=== PATIENT | female | born 1990 | race American Indian/Alaskan Native ===

== ENCOUNTER 2017-03-13 13:00 | Emergency (ER) | payer OTHER ==
[2017-03-13 13:11] VITALS: BMI 33.0
[2017-03-13 19:23] VITALS: BP 115/63; PULSE 87; RESP 17; TEMP 97.3; O2SAT 99
--- NOTE | 2017-03-13 20:35 | OBHP ---
Datetime: 03/13/2017 14:00 IP Adm Impression: Term, intrauterine IP Admit Plan: Observation/Evaluation Admit Comment, IP Provider: CC: Lower abdominal pain HPI: 27 yo at 37.0 wks GA with EDC by LMP; +: FM; -: CTX, VB, ROM last U/S: 03/08/2017 Last visit 03/11/2017 Pt shares that this morning at 10:30 she experienced R lower quadrant abdominal pain, rated 7/10, non radiating, lasting for approximately 30 minutes and spontaneously resolving. Denies associated Na usea, vomiting. past obhx: n/a past gyne: STI: denies; pap recent but unknown date pmhx: none psurghx: tonsillectomy at 5 years old Soc: denies: smoking, alcohol, illicit drugs Meds: PNV Allergies: nkda Vitals: 125/73 94bpm 100% PE: General: pleasant, in no acute distress HEENT: normocephalic, PERRLA; AAOx3 Heart: no murmurs, regular rate and rhythm, S1, S2 normal. Lungs: clear to auscultation bilaterally, no wheezing Abdomen: nontender, gravid CVA: negative Lower extremities: negative for pitting edema Pelvic: Pt examined bedside US: fetus in vertex position; spine on R side of maternal abdomen with surrounding p ockets of amniotic fluid. Monitor: moderate variability, Accel:15x15; No decels; FHR: 148. Assessment: 27 yo F IUP at 37.0 wks via LMP Plan: R lower abdominal pain associated with positioning Pt will be monitored NST. d/w Dr. Mahsa CAI PGY1 OBH addendum: Patient seen and examined by me with Dr. Cai. Agree with above assessment and plan. DC home Labor precautions discussed with patient and fOB Follow up for her next OB appointment as scheduled Pelvic Type - PN: Adequate Extremities - PN: Normal Abdomen - PN: Normal Back - PN: Normal Breast - PN: Not Done Lungs - PN: Normal Heart - PN: Normal Thyroid - PN: Not Done Neurologic - PN: Normal HEENT - PN: Normal General - PN: Normal FHR - Baseline A Provider: 140 EGA AdmitDate IP: 37.0 Vital Signs Provider: Reviewed; Within Normal Limits IP Chief Complaint: Other NICHD Variability Prov Fetus A: Moderate 6-25bpm NICHD Accel Fetus A IP Provider: 15X15 FHR Category Provider Fetus A: Category I NICHD Decel Fetus A IP Provider: None Genitourinary Exam: Normal DTRs - PN: Not Done
== END 2017-03-13 14:35 | disposition home or self-care (01) ==
LOC: H.EROB2 13:00 → H.EROB 13:03 → H.EROB2 14:35
DX: O47.1 False labor at or after 37 completed weeks of gestation (principal); Z3A.37 37 weeks gestation of pregnancy

== ENCOUNTER 2017-03-25 15:36 | Emergency (ER) | payer OTHER ==
[2017-03-25 16:42] VITALS: BMI 34.9
[2017-03-25 17:37] LABS: RBC URINE 2 /hpf (0-3); URINE BACTERIA RARE (<OCC); URINE BILIRUBIN NEGATIVE (NEGATIVE); URINE BLOOD NEGATIVE (NEGATIVE); URINE COLOR YELLOW (YELLOW); URINE GLUCOSE (UA) NEG (Normal); URINE KETONE NEGATIVE (NEGATIVE); URINE LEUKOCYTE ESTERASE TRACE Leu/uL (Negative); URINE PROTEIN NEGATIVE (NEGATIVE); URINE UROBILINOGEN 0.2-1.0 mg/dL (0.2-1.0); WBC URINE 3 /hpf (0-5)
[2017-03-25 17:38] LABS: BASO % 0.4 % (0.0-2.0); EOS % 0.4 % (0.0-4.0); HEMATOCRIT 40.1 % (34.0-47.0); LYMPH # 2.1 K/uL (1.0-4.3); LYMPH % 28.5 % (20.0-40.0); MEAN CORPUSCULAR HEMOGLOBIN 25.5 pg (27.0-31.0); MEAN CORPUSCULAR HGB CONC 32.2 g/dL (33.0-37.0); MEAN PLATELET VOLUME 10.8 fl (7.2-11.7); MONO # 0.6 K/uL (0.0-0.8); MONO % 8.3 % (0.0-10.0); NEUT # 4.6 K/uL (1.8-7.0); NEUT % 62.4 % (50.0-75.0); NRBC % 0.1 % (0.0-0.0); RED CELL DISTRIBUTION WIDTH 15.5 % (11.5-14.5); WHITE BLOOD COUNT 7.4 K/uL (4.8-10.8)
[2017-03-25 17:46] LABS: ALB/GLOB RATIO 1.1 (1.0-2.1); ALKALINE PHOSPHATASE 217 U/L (38-126); ALT/SGPT 29 U/L (9-52); AST/SGOT 20 U/L (14-36); BILIRUBIN,TOTAL 0.3 mg/dl (0.2-1.3); BLOOD UREA NITROGEN 9 mg/dl (7-17); CALCIUM 9.7 mg/dL (8.4-10.2); CARBON DIOXIDE 18 mmol/L (22-30); CHLORIDE 109 mmol/L (98-107); GFR AFRICAN-AMERICAN > 60; GLUCOSE,RANDOM 72 mg/dL (65-105); POTASSIUM 3.8 MMOL/L (3.6-5.0); SODIUM 140 mmol/l (132-148); TOTAL PROTEIN 7.3 G/DL (6.3-8.2)
--- NOTE | 2017-03-25 18:53 | OBHP ---
Datetime: 03/25/2017 18:41 IP Adm Impression: Term, intrauterine IP Admit Plan: Observation/Evaluation; Discharge home Admit Comment, IP Provider: 27 yo at 38.5 wks GA with EDC by LMP; +: FM; -: CTX, VB, ROM Pt presents for bp monitoring and laboratory eval for preeclampsia due to elev bp noted in office today. Denies associated headache, blurred vision, right upper quadrant or midepigastric, scotomata, Nausea orvomiting. past obhx: n/a past gyne: STI: denies; pap recent but unknown date pmhx: none psurghx: tonsillectomy at 5 years old Soc: denies: smoking, alcohol, illicit drugs Meds: PNV Allergies: nkda Assessment: Elevated BP noted in office eval for preeclampsia 38.5wks Plan: cbc, ldh, cmp, ua Addendum: Laboratory evaluation within normal limits. Results discussed with patient with Dr. Cuellar Preeclamptic precautions Patient advised to follow this Saturday in 2 days as scheduled with Dr. Cuellar Extremities - PN: Normal Abdomen - PN: Normal Lungs - PN: Normal Heart - PN: Normal Neurologic - PN: Normal HEENT - PN: Normal General - PN: Normal FHR - Baseline A Provider: 130 Contraction Comments Provider: no EGA AdmitDate IP: 38.5 Vital Signs Provider: Reviewed IP Chief Complaint: Signs/Symptoms Gestational HTN NICHD Variability Prov Fetus A: Moderate 6-25bpm NICHD Accel Fetus A IP Provider: 15X15 FHR Category Provider Fetus A: Category I NICHD Decel Fetus A IP Provider: None
[2017-03-25 22:32] VITALS: BP 128/70; PULSE 98; RESP 12; TEMP 98.5
== END 2017-03-25 18:27 | disposition home or self-care (01) ==
LOC: H.EROB2 15:46 → H.L&D 16:05 → H.EROB2 18:27
DX: O13.3 Gestational [pregnancy-induced] hypertension without significant proteinuria, third trimester (principal); Z3A.38 38 weeks gestation of pregnancy

== ENCOUNTER 2017-03-28 07:50 | Inpatient (IN) | payer OTHER ==
[2017-03-28 07:55] VITALS: BMI 36.3
[2017-03-28] MEDS ORDERED: Oxytocin 30 units/LR 500ML 500 ML IV SCH (08:00)
[2017-03-28 08:27] LABS: BASO % 0.4 % (0.0-2.0); EOS # 0.1 K/uL (0.0-0.7); EOS % 1.3 % (0.0-4.0); HEMATOCRIT 38.7 % (34.0-47.0); LYMPH # 2.3 K/uL (1.0-4.3); LYMPH % 31.9 % (20.0-40.0); MEAN CELL VOLUME 78.1 fl (81.0-99.0); MEAN CORPUSCULAR HEMOGLOBIN 25.9 pg (27.0-31.0); MEAN CORPUSCULAR HGB CONC 33.1 g/dL (33.0-37.0); MEAN PLATELET VOLUME 10.5 fl (7.2-11.7); MONO # 0.6 K/uL (0.0-0.8); NEUT # 4.1 K/uL (1.8-7.0); NEUT % 58.4 % (50.0-75.0); NRBC % 0.2 % (0.0-0.0); RED CELL DISTRIBUTION WIDTH 15.7 % (11.5-14.5); WHITE BLOOD COUNT 7.1 K/uL (4.8-10.8)
[2017-03-28] MEDS ORDERED: ceFAZolin 2 GM in Sodium Chloride 0.9% 100 ML IVPB ONE (08:30)
[2017-03-28] MEDS: Lactated Ringer's 1,000 ML IV SCH ×2 (08:30→09:15)
[2017-03-28] MEDS ORDERED: Oxytocin 30 units/LR 500ML 30 U/500 ML BAG IV ONE (09:00)
[2017-03-28] MEDS ORDERED: Morphine 1 mg/ml preservative-free Inj(Duramorph) ONE (09:36)
--- NOTE | 2017-03-28 09:36 | OBADHP ---
Datetime: 03/28/2017 09:32 Admit Comment, IP Provider: 27-year-old at 39 weeks and 1 day gestational age presents for wiliam ctive primary . Patient with a history of gestational hypertension as well as large for gest ational age . Patient given option for induction of labor. Patient declining induction of labor . Discussed with patient the risks, benefits, alternatives of surgery. All patient questions answered . Patient consented for . Otherwise, patient course unremarkable except GBS positiv e. Past medical history none Past surgical history none Medications vitamins No known drug allergies Obstetrical history Social history no tobacco, no drugs, no alcohol Physical exam: Deferred physical exam findings Assessment: 27-year-old at 39 weeks and 1 day gestational age for elective primary . Maternal w ell-being and well-being reassuring at this time. Plan: Patient consented for primary Plan for routine postoperative observation and care Pelvic Type - PN: Adequate Extremities - PN: Normal Abdomen - PN: Normal Back - PN: Normal Breast - PN: Normal Lungs - PN: Normal Heart - PN: Normal Thyroid - PN: Normal Neurologic - PN: Normal HEENT - PN: Normal General - PN: Normal FHR - Baseline A Provider: 150s IP Hx Assessment: The History has been Reviewed and is Current Vital Signs Provider: Reviewed; Within Normal Limits IP Chief Complaint: Scheduled Section NICHD Variability Prov Fetus A: Moderate 6-25bpm NICHD Accel Fetus A IP Provider: 15X15 FHR Category Provider Fetus A: Category I NICHD Decel Fetus A IP Provider: None Genitourinary Exam: Normal DTRs - PN: Normal EGA AdmitDate IP: 39.1 IP Adm Impression: Term, intrauterine ; No Active Labor; Intact Membranes IP Admit Plan: Admit to unit; Initiate Section protocol Datetime: 03/25/2017 18:41 Contraction Comments Provider: no
[2017-03-28] MEDS ORDERED: Oxycodone/Acetaminophen 5/325 mg Tab PO PRN ×2 (11:09)
[2017-03-28] MEDS ORDERED: Naloxone 0.4 mg/ml Inj (Adult) IVP PRN (12:13)
[2017-03-28] MEDS ORDERED: DiphenhydrAMINE 50 mg/ml Inj IVP PRN (12:13)
[2017-03-28] MEDS ORDERED: Influenza Vaccine 18yr & older 0.5 ML/45 MCG SYR IM ONE (18:47)
[2017-03-29 05:54] LABS: HEMATOCRIT 36.5 % (34.0-47.0); MEAN CELL VOLUME 78.6 fl (81.0-99.0); MEAN CORPUSCULAR HEMOGLOBIN 25.7 pg (27.0-31.0); MEAN CORPUSCULAR HGB CONC 32.7 g/dL (33.0-37.0); RED CELL DISTRIBUTION WIDTH 15.3 % (11.5-14.5); WHITE BLOOD COUNT 10.1 K/uL (4.8-10.8)
--- NOTE | 2017-03-29 09:05 | OBDS ---
DELIVERY PERSONNEL Delivery Doctor: Leticia Cuellar MD Scrub Nurse: Cheyenne Dan obt Metal Numerical Tool Programmer: Sandra Hunt RN/monty gonzalez rn Anesthesiologist: Rosmery Juarez MD MATERNAL INFORMATION Delivery Anesthesia: Spinal Medications in Delivery: pitocin after placenta / ancef as preop Estimated Blood Loss (ml): 800 Placenta Cultured: No Maternal Complications: None Other Maternal Complications: scheduale elective primary c/s Provider Comments: Primary via Pfannenstiel incision. Patient delivered viable infant male with Apgars of 9 and 9 at one and 5 minutes respectively. Nor mal uterus, normal tubes and ovaries bilaterally Estimated blood loss 800 mL fluids 1000 mL lactate Ringers urine output 150 mL of clear urine No complications Patient tolerated procedure well. LABOR SUMMARY EDC: 04/03/2017 00:00 No. Babies in Womb: 1 Attempted: No Labor Anesthesia: None LABOR INFORMATION Oxytocin: N/A Group B Beta Strep: Positive Steroids Given: None MEMBRANES Membranes Rupture Method: Artificial Rupture of Membranes: 03/28/2017 10:16 Length of Rupture (hrs): 0.00 Amniotic Fluid Color: Clear Amniotic Fluid Amount: Moderate Amniotic Fluid Odor: Normal STAGES OF LABOR Stage 3 hrs: 0 Stage 3 min: 1 VAGINAL DELIVERY Episiotomy: None Laceration Extension: N/A Laceration Type: None CSECTION DELIVERY Primary Indication: elective pc/s Other Primary Indication: none CSection Urgency: Elective CSection Incidence: Primary Elective: Elective CSection Incision: Lower Uterine Transverse BABY A INFORMATION Delivery Date/Time: 03/28/2017 10:16 Method of Delivery: Born in Route : Yes : N/A Forceps: N/A Vacuum Extraction: N/A Shoulder Dystocia : No SHOULDER DYSTOCIA BABY A Infant Delivery Date/Time: 03/28/2017 10:16 PRESENTATION/POSITION BABY A Presentation: Cephalic Cephalic Presentation: Vertex Vertex Position: Left Occipital Anterior Breech Presentation: N/A PLACENTA INFORMATION BABY A Placenta Delivery Time : 03/28/2017 10:17 Placenta Method of Delivery: Manual Removal Placenta Status: Delivered SCORES BABY A Heart Rate 1 min: >100 bpm Resp Effort 1 min: Good Cry Reflex Irritability 1 min: Cough or Sneeze or Pulls Away Muscle Tone 1 min: Active Motion Color 1 min: Body [place], Extremities Blue SCORE 1 MIN: 9 Heart Rate 5 min: >100 bpm Resp Effort 5 min: Good Cry Reflex Irritability 5 min: Cough or Sneeze or Pulls Away Muscle Tone 5 min: Active Motion Color 5 min: Body [place], Extremities Blue SCORE 5 MIN: 9 Heart Rate 10 min: >100 bpm Resp Effort 10 min: Good Cry Reflex Irritability 10 min: Cough or Sneeze or Pulls Away Muscle Tone 10 min: Active Motion Resuscitation Effort 10 min: Tactile Stimulation INFANT INFORMATION BABY A Gestational Age at Delivery: 39.0 Gestational Status: Term Infant Outcome : Liveborn Condition : Stable Infant Sex: Male IDENTIFICATION/MEDS BABY A ID Band Number: [id number] ID Band Location: Left Leg; Left Arm WEIGHT/LENGTH BABY A Infant Birthweight (gms): 3895 Weight (lb): 8 Infant Weight (oz): 9 CORD INFORMATION BABY A No. Cord Vessels: 3 Nuchal Cord : x3 loose Nuchal Cord Other: none True Knot: none Infant Cord pH Baby Arterial: no Infant Cord pH Baby Venous: no Cord Blood Taken: Yes Banking/Donate Info: no Infant Suction: Mouth; Nose ASSESSMENT BABY A Infant Complications: None Physical Findings at Delivery: Within Normal Limits Respirations: Appears Normal Toppiece Chopper/ALS Called : Yes Care By: dr lion greene /hema martines rn
[2017-03-29] MEDS: Multivitamin With Minerals Tab PO SCH (09:26)
--- NOTE | 2017-03-29 12:09 | OBPPN ---
Datetime: 03/29/2017 12:07 PP Pain Prov: Within normal limits PP Nausea Prov: Denies PP Flatus Prov: Yes PP Breasts Prov: Normal PP Heart Prov: Normal PP Lungs Prov: Normal PP Abdomen/Uterus Prov: Normal PP Lochia Prov: Normal PP Vulva/Perineum Prov: Normal PP CVA Tenderness Prov: Normal PP Extremities Prov: Normal PP Comments Phys Exam Prov: Incision clean/dry/intact fundus firm under umbilicus PP Impression Prov: Normal progression PP Plan Prov: Continue present management PP Progress Note Prov: Patient denies CP, no SOB, no N/V, tolerating PO diet, ambulating/voiding wel l, mild lochia, abdominal pain tolerable with meds A/P 1. Reg diet 2. Encourage ambulation 3. Percocet/Motrin prn 4. IP PP Procedures: None Vital Signs Provider PP: Reviewed; Within Normal Limits
[2017-03-29] MEDS ORDERED: Influenza Vaccine 18yr & older 0.5 ML/45 MCG SYR IM ONE (17:30)
[2017-03-30] MEDS: Multivitamin With Minerals Tab PO SCH (09:10)
[2017-03-31] MEDS: Multivitamin With Minerals Tab PO SCH (09:29)
--- NOTE | 2017-03-31 10:34 | OBDCSUM ---
Datetime: 03/31/2017 10:32 Discharged to, Provider: Home Follow up at, Provider: [place] Disch Instr Activity: Normal activity Disch Instr Diet: Regular Discharge Instructions, Provider: Routine instructions given Discharge Diagnosis, Provider: Term Delivered Discharge Time: 03/31/2017 10:32 Follow up in weeks, Provider: 1 week Disch Referrals: None Contraception discussed, Prov: Yes Disch Activity Restrictions: No lifting; No sexual activity; Nothing in vagina - Bulger, tampon s, douche Datetime: 03/25/2017 18:19 Discharge Instructions, Provider: Routine instructions given Contraception discussed, Prov: Yes Disch Activity Restrictions: No lifting; No sexual activity; Nothing in vagina - Bulger, tampon s, douche
[2017-03-31 22:39] VITALS: BP 132/68; PULSE 92; RESP 20; TEMP 98.4; O2SAT 99
== END 2017-03-31 13:30 | disposition home or self-care (01) | DRG 766 ==
LOC: H.L&D 07:52 → H.OB/GYN 14:44
PROVIDERS: ADMIT Obstetrics & Gynecology; ATTEND Obstetrics & Gynecology
PROC: 10D00Z1 Extraction of Products of Conception, Low, Open Approach (ICD-10-PCS; principal; 2017-03-28)
PROC: 4A1HXCZ Monitoring of Products of Conception, Cardiac Rate, External Approach (ICD-10-PCS; 2017-03-28)
DX: O99.824 Streptococcus B carrier state complicating childbirth (principal); O69.81X0 Labor and delivery complicated by cord around neck, without compression, not applicable or unspecified; Z3A.39 39 weeks gestation of pregnancy; Z37.0 Single live birth